=== PATIENT | female | born 1975 | race Caucasian/White ===

== ENCOUNTER 2016-10-17 15:28 | Emergency (ER) | payer OTHER ==
[2016-10-17 18:33] VITALS: BP 146/68
== END 2016-10-17 18:33 | disposition home or self-care (01) ==
LOC: ED 15:28
DX: L03.116 Cellulitis of left lower limb (principal); J45.909 Unspecified asthma, uncomplicated
CPT/HCPCS: Q0162

== ENCOUNTER 2016-10-20 13:07 | Emergency (ER) | payer OTHER ==
[~2016-10-20] VITALS: Ht 157.5 cm; Wt 111.6 kg
[2016-10-20 17:55] VITALS: BP 121/78
== END 2016-10-20 17:55 | disposition home or self-care (01) ==
LOC: ED 13:07
DX: L02.416 Cutaneous abscess of left lower limb (principal); J45.909 Unspecified asthma, uncomplicated
CPT/HCPCS: J2001

== ENCOUNTER 2016-10-22 15:37 | Emergency (ER) | payer OTHER ==
[2016-10-22 18:07] VITALS: BP 121/73
== END 2016-10-22 18:08 | disposition home or self-care (01) ==
LOC: ED 15:37
DX: L02.416 Cutaneous abscess of left lower limb (principal)
CPT/HCPCS: J2001; J3010

== ENCOUNTER 2017-11-18 10:22 | Emergency (ER) | payer OTHER ==
[~2017-11-18] VITALS: Ht 157.5 cm; Wt 118.8 kg
[2017-11-18 10:33] VITALS: Ht 157.5 cm; Wt 118.8 kg
[2017-11-18 13:42] VITALS: BP 140/69
== END 2017-11-18 13:42 | disposition home or self-care (01) ==
LOC: ED 10:22
DX: J45.901 Unspecified asthma with (acute) exacerbation (principal)
CPT/HCPCS: J7613; J7644; Q0092

== ENCOUNTER 2019-09-04 21:11 | Emergency (ER) | payer OTHER ==
[~2019-09-04] VITALS: Ht 157.5 cm; Wt 117.9 kg
[2019-09-04 21:20] VITALS: Ht 157.5 cm; Wt 117.9 kg
[2019-09-04 23:48] VITALS: BP 127/82
== END 2019-09-04 23:48 | disposition home or self-care (01) ==
LOC: ED 21:11
DX: F41.9 Anxiety disorder, unspecified (principal); T40.7X5A Adverse effect of cannabis (derivatives), initial encounter; Y92.89 Other specified places as the place of occurrence of the external cause
CPT/HCPCS: Q0092

== ENCOUNTER 2020-03-01 07:16 | Emergency (ER) | payer OTHER ==
[~2020-03-01] VITALS: Ht 157.5 cm; Wt 108.9 kg
[2020-03-01 07:18] VITALS: Ht 157.5 cm; Wt 108.9 kg
[2020-03-01 08:55] VITALS: BP 118/76
== END 2020-03-01 08:55 | disposition home or self-care (01) ==
LOC: ED 07:16
DX: L50.9 Urticaria, unspecified (principal); T78.1XXA Other adverse food reactions, not elsewhere classified, initial encounter; J45.909 Unspecified asthma, uncomplicated; E03.9 Hypothyroidism, unspecified; X58.XXXA Exposure to other specified factors, initial encounter
CPT/HCPCS: J7512; Q0163

== ENCOUNTER 2020-03-03 10:55 | Emergency (ER) | payer OTHER, SELFPAY ==
[~2020-03-03] VITALS: Ht 157.5 cm; Wt 108.9 kg
[2020-03-03 10:58] VITALS: Ht 157.5 cm; Wt 108.9 kg
[2020-03-03 12:40] VITALS: BP 142/92
== END 2020-03-03 12:40 | disposition home or self-care (01) ==
LOC: ED 10:55
DX: L50.9 Urticaria, unspecified (principal); J45.909 Unspecified asthma, uncomplicated; Z86.39 Personal history of other endocrine, nutritional and metabolic disease
CPT/HCPCS: J1200; J2920